=== PATIENT | male | born 1950 ===

== ENCOUNTER 2024-02-20 04:22 | Day surgery (SDC) | payer OTHER ==
[2024-02-16 11:29] VITALS: BMI 22.8
[2024-02-20] MEDS ORDERED: SUCCINYLCHOLINE CHLORIDE 200 MG/10 ML SYRINGE ONE (07:45)
[2024-02-20] MEDS ORDERED: MIDAZOLAM HCL 2 MG/2 ML SINGLE DOSE VIAL ONE (08:15)
[2024-02-20 10:08] VITALS: BP 124/66; PULSE 58; RESP 18; TEMP 97.7
== END 2024-02-20 10:00 | disposition home or self-care (01) ==
LOC: JASU-SURG 04:22
PROVIDERS: ATTEND Urology
PROC: 0TF4XZZ Fragmentation in Left Kidney Pelvis, External Approach (ICD-10-PCS; principal; 2024-02-20 08:00)
DX: N20.0 Calculus of kidney (principal)
CPT/HCPCS: 82962